=== PATIENT | female | born 1965 | race Caucasian/White ===

== ENCOUNTER 2022-03-16 13:22 | Emergency (ER) | payer OTHER ==
[2022-03-16] MEDS ORDERED: Ibuprofen 800 MG TAB ONE (14:07)
== END 2022-03-16 14:30 | disposition home or self-care (01) ==
LOC: NAV ERS 13:22
DX: S83.91XA Sprain of unspecified site of right knee, initial encounter (principal); S43.401A Unspecified sprain of right shoulder joint, initial encounter; S00.03XA Contusion of scalp, initial encounter; S50.11XA Contusion of right forearm, initial encounter; I10 Essential (primary) hypertension; E11.40 Type 2 diabetes mellitus with diabetic neuropathy, unspecified; K21.9 Gastro-esophageal reflux disease without esophagitis; M79.7 Fibromyalgia; F17.210 Nicotine dependence, cigarettes, uncomplicated; W07.XXXA Fall from chair, initial encounter; Y93.89 Activity, other specified; Y92.69 Other specified industrial and construction area as the place of occurrence of the external cause